=== PATIENT | female | born 1980 | race Caucasian/White ===

== ENCOUNTER 2019-03-30 19:25 | Emergency (ER) | payer OTHER ==
[2019-03-30] MEDS: METHYLPREDNISOLONE 125 MG INJ IM ×2 (19:56→20:03)
== END 2019-03-30 20:13 | disposition home or self-care (01) ==
LOC: FTE 19:25
DX: R21 Rash and other nonspecific skin eruption (principal)
CPT/HCPCS: 96372; 99284-25

== ENCOUNTER 2019-04-10 21:53 | Emergency (ER) | payer OTHER | END 2019-04-10 23:24 | disposition home or self-care (01) | LOC: FTE 21:53 | DX: R21 Rash and other nonspecific skin eruption (principal); F17.210 Nicotine dependence, cigarettes, uncomplicated | CPT/HCPCS: 99283; Z7502 ==